=== PATIENT | male | born 1995 | race Hispanic/Latino ===

== ENCOUNTER 2018-11-14 10:33 | Emergency (ER) | payer SELFPAY ==
[~2018-11-14] VITALS: Ht 175.3 cm; Wt 99.8 kg
[2018-11-14] MEDS ORDERED: ONDANSETRON HCL INJ 2MG/ML 2ML 2 MG/ML VIAL IV ONE (10:42)
[2018-11-14] MEDS ORDERED: SODIUM CHLORIDE 0.9% 1000ML 1,000 ML IV STA (10:42)
[2018-11-14] MEDS ORDERED: MORPHINE SULFATE INJ 4 MG/ML INJ 1ML IV ONE (10:42)
--- NOTE | 2018-11-14 10:45 | NUR ---
PT BROUGHT FROM [facility] INTO ER 6. RECEIVED REPORT FROM ZHANG MOYA TO ASSUME PTS CARE. WHEN I ENTERED THE ROOM PT WAS UPSIDE DOWN ON HIS HANDS AND KNEES MOANING. PT PLACED IN GOWN AND ON THE MONITOR. MOTHER AT BEDSIDE. PT C/O NON-RADIATING LLQ PAIN SINCE HE WOKE UP THIS MORNING. NAUSEA AND VOMITING. DENIES DIARRHEA OR FEVER.
--- NOTE | 2018-11-14 11:20 | NUR ---
PATIENT'S MOTHER CALLED ON THE CALL LIGHT AND ASKED FOR A NURSE TO COME IN. WHEN I ENTERED THE ROOM PATIENT WAS UPSIDE DOWN ON HIS HANDS AND KNEES AGAIN AND MOANING. HE STATED THAT AFTER THE MORPHINE HIS PAIN WAS WORSE. STATES PAIN NOW A 10/10. SHARP. HE ALSO HAD A SMALL AMOUNT OF VOMIT IN HIS EMESIS BAG. BILOUS COLORED WITH UNDIGESTED FOOD. I TOLD HIM I WILL SPEAK WITH THE PHYSICIAN ABOUT THE PAIN AND VOMITING
[2018-11-14 11:21] LABS: BILIRUBIN,URINE NEGATIVE (NEGATIVE); CLARITY,URINE CLOUDY (CLEAR); COLOR,URINE YELLOW (YELLOW); KETONES,URINE NEGATIVE (NEGATIVE); LEUKOCYTE ESTERASE ,URINE NEGATIVE (NEGATIVE); NITRITE,URINE NEGATIVE (NEGATIVE); PROTEIN,URINE DIPSTICK NEGATIVE (NEGATIVE); URINE UROBILINOGEN 0.2 mg/dL (0.2 - 1)
[2018-11-14] MEDS ORDERED: KETOROLAC TROMETHAMINE 30 MG/ML VIAL IV ONE (11:33)
[2018-11-14] MEDS ORDERED: PROMETHAZINE 12.5MG/ NACL 0.9% 12.5 MG/50 ML BAG IV ONE (11:45)
[2018-11-14 11:46] LABS: BASOPHILS % 0.4 % (0.0-1.0); EOSINOPHILS # (AUTO) 0.1 (0.0-0.4); EOSINOPHILS % 0.8 % (0.0-6.0); HEMATOCRIT 47.1 % (38.2-49.6); HEMOGLOBIN 16.6 g/dL (14.0-18.0); LYMPHOCYTES # (AUTO) 2.3 (1.0-3.2); MEAN CORPUSCULAR HEMOGLOBIN 30.9 pg (28-32); MEAN CORPUSCULAR HGB CONC 35.2 g/dL (31-35); MEAN CORPUSCULAR VOLUME 87.7 fL (81-99); MONOCYTES # (AUTO) 0.9 (0.2-0.8); MONOCYTES % 10.1 % (4.4-11.3); NEUTROPHILS # (AUTO) 5.2 (2.1-6.9); NEUTROPHILS % 61.5 % (38.7-80.0); PLATELET COUNT 182 x10e3/uL (140-360); RED BLOOD COUNT 5.37 x10e6/uL (4.3-5.7); RED CELL DISTRIBUTION WIDTH 12.1 % (11.7-14.4)
[2018-11-14 11:50] LABS: AMORPHOUS SEDIMENT,URINE MANY (FEW); BACTERIA,URINE FEW /HPF; EPITHELIAL CELLS,URINE FEW /LPF
[2018-11-14 12:04] LABS: ALANINE AMINOTRANSFERASE 35 IU/L (0-55); ALBUMIN 4.6 g/dL (3.5-5.0); ALBUMIN/GLOBULIN RATIO 1.6 (0.8-2.0); ALKALINE PHOSPHATASE 74 IU/L (40-150); AMYLASE 54 U/L (25-125); ANION GAP 12.5 mmol/L (8-16); BLOOD UREA NITROGEN 12 mg/dL (7-26); BUN/CREATININE RATIO 13 (6-25); CALCIUM 9.8 mg/dL (8.4-10.2); CARBON DIOXIDE 27 mmol/L (22-29); CHLORIDE 104 mmol/L (98-107); CREATININE, SERUM 0.93 mg/dL (0.72-1.25); EST GLOMERULAR FILTRATION RATE > 60 ML/MIN (60-); GLUCOSE 119 mg/dL (74-118); LIPASE 29 U/L (8-78); POTASSIUM 3.5 mmol/L (3.5-5.1); SODIUM 140 mmol/L (136-145)
--- NOTE | 2018-11-14 12:12 | Diagnostic Imaging Report ---
EXAM: CT Abdomen and Pelvis WITHOUT contrast INDICATION: Sharp pain on the left side. Stone protocol. COMPARISON: None. TECHNIQUE: Abdomen and pelvis were scanned utilizing a multidetector helical scanner from the lung base to the pubic symphysis without administration of IV contrast. Absence of intravenous contrast decreases sensitivity for detection of focal lesions and vascular pathology. Coronal and sagittal reformations were obtained. Stone protocol is performed. IV CONTRAST: None ORAL CONTRAST: Water COMPLICATIONS: None RADIATION DOSE: Total DLP: 772.86 mGy*cm Estimated effective dose: (DLP x 0.015 x size factor) mSv CTDIvol has been reviewed. It is below the limits set by the Radiation Protocol Committee (RPC). Dose modulation, iterative reconstruction, and/or weight based adjustment of the mA/kV was utilized to reduce the radiation dose to as low as reasonably achievable. FINDINGS: LINES and TUBES: None. LOWER THORAX: Unremarkable HEPATOBILIARY: No focal hepatic lesions. No biliary ductal dilation. GALLBLADDER: No radio-opaque stones or sludge. No wall thickening. SPLEEN: No splenomegaly. PANCREAS: No focal masses or ductal dilatation. ADRENALS: No adrenal nodules KIDNEYS/URETERS: No right hydronephrosis. No cystic or solid mass lesions. 1 to 2 mm stone near the left UVJ. Mild inflammatory changes along the left ureter and left renal pelvis. Left kidney is mildly edematous with mild perinephric fat stranding. GI TRACT: No abnormal distention, wall thickening, or evidence of bowel obstruction. Appendix is normal. PELVIC ORGANS/BLADDER: Unremarkable. LYMPH NODES: No lymphadenopathy. VESSELS: Unremarkable. PERITONEUM / RETROPERITONEUM: No free air or fluid. BONES: Unremarkable. SOFT TISSUES: Unremarkable. IMPRESSION: 1 to 2 mm stone in the left UVJ junction. Mild inflammatory changes surrounding the left ureter and left kidney. This may be related to recent passage of stone versus superimposed infection. Signed by: Dr. Alejandro Gonzalez M.D. on 11/14/2018 12:09 PM
[2018-11-14] MEDS ORDERED: CEFTRIAXONE SOD 1 GM/NS 50 ML 50 ML IV ONE (12:45)
--- NOTE | 2018-11-14 12:50 | NUR ---
PT RESTING QUIETLY NOW LYING ON HIS SIDE. SAID FEELS MUCH BETTER. PAIN ALMOST GONE. NO MORE N/V
== END 2018-11-14 13:54 | disposition home or self-care (01) ==
LOC: ER 10:33
DX: N20.1 Calculus of ureter (principal); N10 Acute pyelonephritis; R10.32 Left lower quadrant pain
CPT/HCPCS: 36415; 74176; 80053; 81001; 82150; 83690; 85025; 87086; 99284; J0696; J1885; J2270; J2405; J2550; J7030